=== PATIENT | female | born 1955 | race Caucasian/White ===

== ENCOUNTER 2018-01-01 09:09 | Outpatient (CLI) | payer OTHER | END 2018-01-01 16:54 | disposition home or self-care (01) | LOC: MRI 09:09 | DX: G30.1 Alzheimer's disease with late onset (principal) | CPT/HCPCS: 70551 ==

== ENCOUNTER → 2018-03-18 | Outpatient (CLI) | payer OTHER | END | disposition home or self-care (01) | LOC: LAB 12:50 | DX: M81.0 Age-related osteoporosis without current pathological fracture (principal); G40.009 Localization-related (focal) (partial) idiopathic epilepsy and epileptic syndromes with seizures of localized onset, not intractable, without status epilepticus; N60.92 Unspecified benign mammary dysplasia of left breast; K29.70 Gastritis, unspecified, without bleeding; D51.3 Other dietary vitamin B12 deficiency anemia; R19.7 Diarrhea, unspecified; R97.0 Elevated carcinoembryonic antigen [CEA]; R97.8 Other abnormal tumor markers; C18.9 Malignant neoplasm of colon, unspecified; C25.1 Malignant neoplasm of body of pancreas; N64.89 Other specified disorders of breast; Z12.31 Encounter for screening mammogram for malignant neoplasm of breast; C50.811 Malignant neoplasm of overlapping sites of right female breast; K86.1 Other chronic pancreatitis ==

== ENCOUNTER 2018-03-19 09:07 | Outpatient (CLI) | payer OTHER | END 2018-03-19 15:28 | disposition home or self-care (01) | LOC: TOM 09:07 | DX: M81.0 Age-related osteoporosis without current pathological fracture (principal); G40.009 Localization-related (focal) (partial) idiopathic epilepsy and epileptic syndromes with seizures of localized onset, not intractable, without status epilepticus; N60.92 Unspecified benign mammary dysplasia of left breast; K29.70 Gastritis, unspecified, without bleeding ==

== ENCOUNTER 2019-05-14 10:49 | Emergency (ER) | payer OTHER ==
[~2019-05-14] VITALS: Ht 160 cm; Wt 42.6 kg
[2019-05-14] MEDS ORDERED: CLONAZEPAM0.5 M1 (11:07)
[2019-05-14] MEDS ORDERED: DIVALPROEX SOD500 MG (11:08)
[2019-05-14] MEDS ORDERED: ARICEPT10 MG (11:08)
[2019-05-14] MEDS ORDERED: FEOSOL325 MG (11:08)
[2019-05-14] MEDS ORDERED: FOLIC ACID1 MG (11:09)
[2019-05-14] MEDS ORDERED: AVAPRO150 MG (11:11)
[2019-05-14] MEDS ORDERED: ORPHENADRINE C100 MG PO (16:44)
[2019-05-14] MEDS ORDERED: KETO10TA2 PO (16:44)
== END 2019-05-14 13:56 | disposition home or self-care (01) ==
LOC: ER 10:49
DX: S70.02XA Contusion of left hip, initial encounter (principal); W18.39XA Other fall on same level, initial encounter; Y93.89 Activity, other specified; Y92.098 Other place in other non-institutional residence as the place of occurrence of the external cause; Y99.8 Other external cause status